=== PATIENT | female | born 1955 | race Caucasian/White ===

== ENCOUNTER 2024-07-13 12:29 | Observation (INO) ==
--- NOTE | 2024-07-13 13:05 | Emergency Department Note ---
HPI - SOB/Dyspnea General Chief Complaint: SOB -Shortness of Breath Stated Complaint: SOB .. legs swollen Time Seen by Provider: 07/13/24 12:33 Source: patient and family Mode of arrival: walk-in Limitations: no limitations History of Present Illness HPI Narrative: 68 Y/O Female with HX of CHF comes to the ED with c/o SOB, with increase in BLE swelling. She was recently discharged from hospital on 07-06-2024, she states, I never actually felt better, but thought I could go home, family member with patient states the patient is unable to care for herself. MD elicited complaint: Reports shortness of breath Context: Reports recent illness Timing: Reports constant Severity: mild Exacerbating factors: Reports exertion Relieving factors: Reports nothing Known history of: Reports congestive heart failure and diabetes Associated symptoms: Reports chest congestion Related Data Home Medications Medication Instructions Recorded Confirmed amlodipine 5 mg tablet 5 mg PO DAILY 07/04/24 07/04/24 atenolol 25 mg tablet 12.5 mg PO BID 07/04/24 07/04/24 bumetanide 0.5 mg tablet 0.5 mg PO DAILY PRN edema 07/04/24 07/04/24 glimepiride 4 mg tablet 8 mg PO DAILY 07/04/24 07/04/24 glucagon 1 mg/0.2 mL subcutaneous 1 mg subcut DIRECTED PRN 07/04/24 07/04/24 auto-injector (Gvoke HypoPen hypoglycemia 2-Pack) insulin glargine U-300 conc 300 40 unit subcut BEDTIME PRN 07/04/24 07/06/24 unit/mL (1.5 mL) subcutaneous pen elevated blood sugar (Toujeo SoloStar U-300 Insulin) insulin lispro 100 unit/mL 5 unit subcut QAM 07/04/24 07/04/24 subcutaneous pen lovastatin 10 mg tablet 10 mg PO DAILY 07/04/24 07/04/24 pioglitazone 45 mg tablet 45 mg PO DAILY 07/04/24 07/04/24 Previous Rx's Medication Instructions Recorded ciprofloxacin HCl 250 mg tablet 250 mg PO Q12H uti #10 tabs 07/06/24 sodium zirconium cyclosilicate 5 5 g PO DAILY high potassium #30 ea 07/06/24 gram oral powder packet (Lokelvt) Allergies Allergy/AdvReac Type Severity Reaction Status Date / Time citrus fruit oil Allergy Unknown Uncoded 07/13/24 13:06 Review of Systems Constitutional Denies: fever or chills Cardiovascular Reports: edema and shortness of breath with exertion; Denies: chest pain Respiratory Reports: shortness of breath; Denies: cough, wheezing or stridor Gastrointestinal Denies: abdominal pain, nausea or vomiting Neurological Denies: headache, numbness in extremities or weakness in extremities Psychiatric Denies: anxiety PFSH PFS Medical History (Updated 07/06/24 @ 14:57 by Antionette Mcleod DO) Hypoalbuminemia Diabetes mellitus Hyperlipidemia Hypertension Surgical History (Updated 07/04/24 @ 11:14 by Jennifer Clark RN) History of renal stent Social History Smoking status: never smoker Problems where you live: no known problems Highest level of school completed/degree received: College Exam Constitutional: Vital Signs - 24 hr 07/13/24 12:32 Temperature 98.1 F Pulse Rate 83 Respiratory Rate 22 Blood Pressure 153/52 Pulse Oximetry 96 Oxygen Delivery Me thod Room Air HENMT: normocephalic Eyes: PERRL and EOMs intact bilaterally Respiratory: normal respiratory effort, no wheezes, no retractions and no use of accessory muscles Rhonchi noted, viola bases Cardiovascular: normal heart rate noted and regular rhythm noted Gastrointestinal: abdomen soft to palpation and distended blister, left lower abdomen wall. Non tender Extremities: no tenderness and full ROM Neurology: workforce management consultant II-XII intact and GCS normal Skin: skin color normal Course Course Hospital Course: Patient seen today for increased weakness, with SOB. Recently discharged from in patient on 07-06-2024. Labs reviewed. Chest x-ray with new onset PNA, left lobe. Rocephin 1 gm ordered IV, patient's QTC prolonged, did not order Azithromycin. I called for admission, Dr. Mcleod agreed to accept and assume care for this patient. Reevaluation(s) Reevaluation #1: Patient is updated on all labs and imaging results, with recommendations for admission. We discussed a treatment plan. I answered all the patient's and her relative's questions. The patient currently denies any pain, remains SOB, not requiting supplemental 02 at this time, RA patient's 02 sats 93-94%, RR even and unlabored. Time: 14:00 Vital Signs Vital signs: Vital Signs Temperature 98.1 F 07/13/24 12:32 Pulse Rate 83 07/13/24 12:32 Respiratory Rate 22 07/13/24 12:32 Blood Pressure 153/52 07/13/24 12:32 Pulse Oximetry 96 07/13/24 12:32 Oxygen Delivery Method Room Air 07/13/24 12:32 Temperature 98.1 F 07/13/24 12:32 Pulse Rate 83 07/13/24 12:32 Respiratory Rate 22 07/13/24 12:32 Blood Pressure 153/52 07/13/24 12:32 Pulse Oximetry 96 07/13/24 12:32 Oxygen Delivery Method Room Air 07/13/24 12:32 MDM - SOB/Dyspnea Differential Diagnosis Differential diagnosis: Likely congestive heart failure and community acquired pneumonia Medical Records Attestation: I reviewed the patient's medical records. Lab Data Attestation: I reviewed the patient's lab results. Labs: Lab Results 07/13/24 07/13/24 Range/Units 12:40 13:00 WBC 10.9 H (4.3-9.3) K/uL RBC 2.8 L (4.00-5.50) M/uL Hgb 7.8 L (12.5-15.8) gm/dL Hct 23.8 L* (35.9-46.7) % MCV 85.7 (81.0-93.7) fl MCH 28.0 (27.6-32.2) pg MCHC 32.7 L (33.1-35.3) g/dl RDW 17.6 H (11.4-14.2) % Plt Count 257 (152-353) K/uL MPV 7.7 (6.9-10.8) fl Gran % 61.2 (47.8-71.3) % Lymph % (Auto) 25.3 (20.0-43.0) % [place] % (Auto) 10.1 H (3.6-9.8) % Eos % (Auto) 2.8 (0.4-2.8) % Baso % (Auto) 0.6 (0.1-0.85) Lymph # (Auto) 2.7 (1.1-3.1) [place] # (Auto) 1.1 (1.1-3.1) Eos # (Auto) 0.3 H (0.0-0.2) Baso # (Auto) 0.1 (0.0-0.1) Absolute Gran (auto) 6.6 H (2.3-6.0) Sodium 138 (136-145) mmol/L Potassium 4.0 (3.6-5.2) mmol/L Chloride 105.0 (98-107) mmol/L Carbon Dioxide 24 (21-32) mmol/L Anion Gap 9.0 (4-14) mEq/L BUN 71 H (7-18) mg/dL Creatinine 2.2 H (0.6-1.3) mg/dL Estimated GFR 23.8 (>59.9) Glucose 135 H (70-110) mg/dL Calcium 9.2 (8.5-10.1) mg/dL Total Bilirubin 0.29 (0.0-1.0) mg/dL AST 18 (15-37) U/L ALT 29 L (30-65) U/L Alkaline Phosphatase 108 (50-136) U/L B-Natriuretic Peptide 282.0 H (0-100) pg/mL Total Protein 8.1 (6.4-8.2) g/dL Albumin 2.8 L (3.4-5.0) g/dL Urine Color Yellow (STRAW/YELL.) Urine Appearance Hazy (CLEAR) Ur Specific [place] 1.015 (1.001-1.035) Urine Protein 3+ (NEGATIVE) Urine Glucose (UA) Normal (NORMAL) Urine Ketones Negative (NEGATIVE) Urine Occult Blood 3+ (NEG - TRACE) Urine Nitrite Negative (NEGATIVE) Urine Bilirubin Negative (NEGATIVE) Urine Urobilinogen Normal (NORMAL) Ur Leukocyte Esterase Positive (NEGATIVE) Urine RBC > 100 (0 - 5) Urine WBC 5 - 10 ( 0 - 5) Ur Epithelial Cells Few (Few/HPF) Amorphous Sediment Negative (Negative) Urine Bacteria Negative (Negative) Urine Mucus Negative (Negative) Urine Trichomonas Negative (Negative) Urine Yeast Negative (Negative) Fluid pH 6.0 (5 - 9) Imaging Data Imaging ordered: Chest x-ray My impression: XR CHEST 1V HISTORY: SOB; COMPARISON: July 04, 2024 FINDINGS: The trachea is midline. The cardiac silhouette is mildly enlarged. Left lung base infiltrate is seen with small left effusion.. The rest of lungs are clear without focal infiltrate or effusion. The bony thorax is unremarkable. IMPRESSION: Left lung base pneumonia with small effusion. THIS IS AN ELECTRONICALLY VERIFIED FINAL REPORT 07/13/2024 1:17 PM - Electronically signed by Raheem Vance MD Discharge Plan Discharge Patient Disposition: Admitted As Inpatient Condition: Stable Clinical Impression: Pneumonia Time of Disposition: 14:02
[2024-07-13 13:09] LABS: Basophils #(Absolute) Auto 0.1 (0.0-0.1); Basophils%(Percent) Auto 0.6 (0.1-0.85); Eosinophils#(Absolute)Auto 0.3 (0.0-0.2); Monocytes #(Absolute)- Auto 1.1 (1.1-3.1); White Blood Count 10.9 K/uL (4.3-9.3)
[2024-07-13 13:13] LABS: Eosinophils%(Percent) Auto 2.8 % (0.4-2.8); Granulocytes % - Auto 61.2 % (47.8-71.3); Granulocytes#(Absolute)- Auto 6.6 (2.3-6.0); Mean Corpuscular Volume 85.7 fl (81.0-93.7); Monocytes %(Percent)- Auto 10.1 % (3.6-9.8); Platelet Count 257 K/uL (152-353)
[2024-07-13 13:14] LABS: Hematocrit 23.8 % (35.9-46.7)
[2024-07-13] MEDS ORDERED: 0.9 % SODIUM CHLORIDE 50 ML IV ONE (14:07)
[2024-07-13] MEDS ORDERED: CEFTRIAXONE SODIUM 1 GM VIAL ONE (14:07)
[2024-07-13 14:09] LABS: Urine Appearance HAZY (CLEAR); Urine Color YELLOW (STRAW/YELL.)
[2024-07-13] MEDS: CEFTRIAXONE SODIUM 1 GM in 0.9 % SODIUM CHLORIDE MB+ 50 ML IV ONE (14:09)
[2024-07-13 14:10] LABS: Specific Gravity Urine 1.015 (1.001-1.035); Urine Blood 3+ (NEG - TRACE); Urine Urobilinogen Normal (NORMAL)
[2024-07-13] MEDS ORDERED: 0.9 % SODIUM CHLORIDE MB+ 50 ML IV ONE (14:10)
[2024-07-13 14:11] LABS: Urine Amorphous Sediment Negative (Negative); Urine Yeast Negative (Negative)
[2024-07-13] MEDS ORDERED: ACETAMINOPHEN 325 MG TABLET PO PRN (17:59)
[2024-07-13] MEDS: BUMETANIDE 1 MG TABLET PO PRN (20:36)
[2024-07-13] MEDS: atenoloL 50 MG TABLET PO SCH (20:37)
[2024-07-13] MEDS: SIMVASTATIN 10 MG TABLET PO SCH (20:37)
[2024-07-14 06:05] LABS: Eosinophils#(Absolute)Auto 0.2 (0.0-0.2); Monocytes #(Absolute)- Auto 0.8 (1.1-3.1); White Blood Count 8.2 K/uL (4.3-9.3)
[2024-07-14 06:08] LABS: Basophils%(Percent) Auto 0.5 (0.1-0.85); Eosinophils%(Percent) Auto 2.2 % (0.4-2.8); Granulocytes % - Auto 65.5 % (47.8-71.3); Granulocytes#(Absolute)- Auto 5.4 (2.3-6.0); Mean Corpuscular Volume 85.2 fl (81.0-93.7); Monocytes %(Percent)- Auto 10.3 % (3.6-9.8); Platelet Count 211 K/uL (152-353)
[2024-07-14 06:15] LABS: Hematocrit 18.3 % (35.9-46.7)
[2024-07-14 06:29] LABS: Potassium 3.8 mmol/L (3.6-5.2)
[2024-07-14] MEDS: INSULIN NPH HUMAN ISOPHANE 100 UNIT/ML VIAL SUBQ SCH (07:25)
[2024-07-14] MEDS ORDERED: LOVASTATIN 10 MG PO SCH (09:00)
[2024-07-14] MEDS: GLIMEPIRIDE 2 MG TABLET PO SCH (09:52)
[2024-07-14] MEDS: AMLODIPINE BESYLATE 5 MG TABLET PO SCH (09:52)
[2024-07-14] MEDS: INSULIN ASPART 100 UNIT/ML INSULN.PEN SUBQ SCH (09:53)
[2024-07-14] MEDS: IPRATROPIUM/ALBUTEROL SULFATE 3 ML AMPUL.NEB INH SCH (13:13)
[2024-07-14] MEDS: AZITHROMYCIN 500 MG 500 MG in 0.9 % SODIUM CHLORIDE 250 ML IV SCH (13:53)
[2024-07-14] MEDS: METHYLPREDNISOLONE SOD SUCC/PF 40 MG/ML VIAL INJ SCH (13:53)
[2024-07-14] MEDS ORDERED: CEFTRIAXONE SODIUM 1 GM in 0.9 % SODIUM CHLORIDE MB+ 50 ML IV ONE (15:00)
[2024-07-14] MEDS ORDERED: INSULIN GLARGINE U SUBQ PRN (16:00)
[2024-07-14] MEDS: CEFTRIAXONE SODIUM 1 GM in 0.9 % SODIUM CHLORIDE MB+ 50 ML IV SCH (16:02)
[2024-07-14] MEDS: ALBUMIN HUMAN 25% 100 ML IV SCH (16:03)
[2024-07-14] MEDS: 0.9 % SODIUM CHLORIDE 100ML 100 ML IV ONE (16:04)
--- NOTE | 2024-07-14 17:13 | History & Physical Report ---
H&P: HPI History of Present Illness Chief complaint: Pneumonia Narrative: 68 Y/O Female with HX of CHF came to the ED with c/o SOB, with increase in BLE swelling. She was recently discharged from hospital on 07-06-2024, she stated, I never actually felt better, but thought I could go home, family member with liudmila uriostegui states the patient is unable to care for herself. Admitted to med/surg for observation and treatment of right leg pain and swelling and new onset pneumonia. Patient states she started coughing after hospital discharge and shortness of breath worsening over the last 3 days and denies any fever and she is always weak and tired. Poor appetite and denies vomiting and diarrhea and no known ill contacts Review of Systems Status of ROS 10 or more systems reviewed and unremark able except as noted in history and below Constitutional Denies: fever or chills Eyes Denies: change in vision, blurry vision or blind spots Ears, nose, mouth, and throat Denies: throat pain, neck pain or throat swelling Cardiovascular Reports: edema (3+ pitting BLE), swelling of feet/ankles and shortness of breath with exertion; Denies: chest pain Respiratory Reports: shortness of breath; Denies: cough, wheezing or stridor Gastrointestinal Denies: abdominal pain, nausea or vomiting Genitourinary Denies: painful urination, urinary frequency or urinary urgency Musculoskeletal Reports: extremity swelling (BLE); Denies: back pain, neck pain or extremity pain Integumentary/Breast Denies: rash, itching or redness Neurological Denies: headache, numbness in extremities or weakness in extremities Psychiatric Denies: anxiety Endocrine Denies: excessive urination or excessive thirst Hematologic/Lymphatic Denies: easy bruising, easy bleeding or enlarged lymph nodes Allergic/Immunologic Denies: wheezing PFSH PFSH Medical History (Updated 07/15/24 @ 08:30 by Antionette Mcleod DO) Venous stasis dermatitis of both lower extremities Chronic acquired lymphedema Hyperkalemia Hypoalbuminemia Diabetes mellitus Hyperlipidemia Hypertension Surgical History (Updated 07/04/24 @ 11:14 by Jennifer Clark RN) History of renal stent Social History Smoking status: never smoker Problems where you live: no known problems Highest level of school completed/degree received: College Meds Home Medications and Allergies Home Medications Medication Instructions Recorded Confirmed Type amlodipine 5 mg tablet 5 mg PO DAILY 07/04/24 07/14/24 History atenolol 25 mg tablet 12.5 mg PO BID 07/04/24 07/14/24 History bumetanide 0.5 mg tablet 0.5 mg PO DAILY PRN edema 07/04/24 07/14/24 History glimepiride 4 mg tablet 8 mg PO DAILY 07/04/24 07/14/24 History glucagon 1 mg/0.2 mL subcutaneous 1 mg subcut DIRECTED PRN 07/04/24 07/14/24 History auto-injector (Gvoke HypoPen hypoglycemia 2-Pack) insulin glargine U-300 conc 300 40 unit subcut BEDTIME PRN 07/04/24 07/14/24 History unit/mL (1.5 mL) subcutaneous pen elevated blood sugar (Toujeo SoloStar U-300 Insulin) insulin lispro 100 unit/mL 5 unit subcut QAM 07/04/24 07/14/24 History subcutaneous pen lovastatin 10 mg tablet 10 mg PO DAILY 07/04/24 07/14/24 History pioglitazone 45 mg tablet 45 mg PO DAILY 07/04/24 07/14/24 History sodium zirconium cyclosilicate 5 5 g PO DAILY high potassium #30 ea 07/06/24 07/14/24 Rx gram oral powder packet (Lokelma) Allergies Allergy/AdvReac Type Severity Reaction Status Date / Time citrus fruit oil Allergy Unknown Uncoded 07/13/24 13:06 Exam Exam: Patient in low higgins's position upon entering room for exam. in recliner at bedside. Patient complained of shortness of breath. Constitutional: abnormal general appearance (chronically ill), no apparent distress, abnormal body habitus (obese), limitations noted (physical limitations) (morbid obesity) and alert Vital Signs - 24 hr 07/13/24 15:06 07/13/24 16:16 07/13/24 16:16 Temperature 98.3 F Pulse Rate 74 Pulse Rate [Left R adial] 76 72 Respiratory Rate 20 18 18 Blood Pressure 129/44 Blood Pressure [Le ft Arm] 147/55 Pulse Oximetry 96 94 L 98 Oxygen Delivery Me thod Room Air Room Air 07/13/24 19:54 07/13/24 20:36 07/13/24 20:37 Temperature 98.2 F Pulse Rate 75 Pulse Rate [Left R adial] 75 Respiratory Rate 21 Blood Pressure 134/55 134/55 Blood Pressure [Le ft Arm] 134/55 Pulse Oximetry 93 L Oxygen Delivery Me thod Room Air 07/13/24 23:18 07/13/24 23:27 07/14/24 03:37 Temperature 98.4 F 98.3 F Pulse Rate 74 Pulse Rate [Left R adial] 74 74 Respiratory Rate 24 19 Blood Pressure 130/53 Blood Pressure [Le ft Arm] 130/53 123/51 Pulse Oximetry 95 94 L Oxygen Delivery Me thod Room Air Room Air 07/14/24 08:00 07/14/24 09:52 07/14/24 12:00 Temperature 98.2 F 98.3 F Pulse Rate 75 Pulse Rate [Left R adial] 75 90 Respiratory Rate 19 19 Blood Pressure 147/92 Blood Pressure [Le ft Arm] 146/92 157/53 Pulse Oximetry 92 L 91 L Oxygen Delivery Me thod Room Air Room Air 07/14/24 13:56 Temperature Pulse Rate Pulse Rate [Left R adial] Respiratory Rate Blood Pressure Blood Pressure [Le ft Arm] Pulse Oximetry 95 Oxygen Delivery Me thod HENMT: normocephalic, head/scalp atraumatic, hearing grossly normal bilate rally, external ears normal and external nose normal Eyes: PERRL, EOMs intact bilaterally, conjunctivae normal, alignment normal, periorbital findings normal and visual acuity normal Neck/C-Spine: trachea midline Lymph: no lymphadenopathy noted and lymphedema noted (lower extremity) (GAAML) Chest: inspection of chest normal and palpation of chest normal Respiratory: breath sounds unequal (left > right), normal respiratory effort, auscultation abnormal (diminished breath sound), wheezing noted, no retractions and no use of accessory muscles Rhonchi noted, gamal bases Cardiovascular: normal heart rate noted, regular rhythm noted and no murmur Gastrointestinal: abdomen soft to palpation and distended blister, left lower abdomen wall. Non tender Genitourinary: no CVA tenderness and bladder normal to palpation Back/Pelvis: spine normal to inspection Extremities: normal to inspection, no tenderness and no deformity Neurology: sanipractic physician II-XII intact, no movement abnormality noted, no focal motor deficit noted, gait abnormality noted (unable to access), speech normal and GCS normal Psychiatry: Mental Status Exam documented within this Exam's Psych section mental status grossly normal, oriented x3, thought process normal, cooperative, affect normal, psychomotor activity normal and memory normal Skin: skin color normal and skin turgor abnormal Reports (edematous) (BLE 3+ Pitting ) Assessment and Plan Assessment and Plan (1) Pneumonia: Assessment and Plan: Albuterol Sulfate 3 ml INH RQ4 Methylprednisolone Sodium Succinate 40 mg INJ Q12H Vancomycin Hcl 1,000 mg in Sodium Chloride 250 mls @ 250 mls/hr IV Q24H added secondary to recent hospitalization on 07/06/24 Piperacillin Sod/Tazobactam 3.375 gm in Sodium Chloride 100 mls @ 200 mls/hr IV Q6H Levofloxacin/Dextrose 750 mg in 150 mls @ 75 mls/hr IV Q48H stop zithromax and rocephin since concerns over excess antibiotics and probable hospital aquired pneumonia Qualifiers: Laterality: left Lung location: lower lobe of lung Pneumonia type: due to unspecified organism Qualified Code(s): J18.9 - Pneumonia, unspecified organism Code(s): J18.9 - Pneumonia, unspecified organism (2) Diabetes mellitus: Assessment and Plan: Glimepiride 8 mg PO Daily Insulin Aspart 5 units SUBQ Daily Insulin Glargine U-300 Conc 40 units SUBQ Bedtime PRN Pioglitazone 45 mg PO Daily Qualifiers: Diabetes mellitus complication status: with hyperglycemia Diabetes mellitus protective signal operations supervisor insulin use: with senior care use Diabetes mellitus type: type 2 Qualified Code(s): E11.65 - Type 2 diabetes mellitus with hyperglycemia; Z79.4 - stress analyst (current) use of insulin Code(s): E11.9 - Type 2 diabetes mellitus without complications (3) Hypertension: Assessment and Plan: Amlodipine Besylate 5 mg PO Daily Atenolol 12.5 mg PO BID Qualifiers: Hypertension type: unspecified Qualified Code(s): I10 - Essential (primary) hypertension Code(s): I10 - Essential (primary) hypertension (4) Acute renal failure: Assessment and Plan: Sodium Zirconium Cyclosilicate 5 gm PO Daily Qualifiers: Acute renal failure type: unspecified Qualified Code(s): N17.9 - Acute kidney failure, unspecified Code(s): N17.9 - Acute kidney failure, unspecified (5) Hyperlipidemia: Assessment and Plan: Simvastatin 5 mg PO Bedtime Qualifiers: Hyperlipidemia type: unspecified Qualified Code(s): E78.5 - Hyperlipidemia, unspecified Code(s): E78.5 - Hyperlipidemia, unspecified (6) Hypoalbuminemia: Assessment and Plan: Albumin 100 mls @ 60 mls/hr IV ONCE Code(s): E88.09 - Other disorders of plasma-protein metabolism, not elsewhere classified (7) Anemia: Assessment and Plan: Transfuse (1) unit RBC's Qualifiers: Anemia type: iron deficiency Iron deficiency anemia type: unspecified iron deficiency Qualified Code(s): D50.9 - Iron deficiency anemia, unspecified Code(s): D64.9 - Anemia, unspecified (8) Skin tear of right forearm without complication: Assessment and Plan: Wound Care Qualifiers: Encounter type: initial encounter Qualified Code(s): S51.811A - Laceration without foreign body of right forearm, initial encounter Code(s): S51.811A - Laceration without foreign body of right forearm, initial encounter (9) Chronic acquired lymphedema: Code(s): I89.0 - Lymphedema, not elsewhere classified (10) Venous stasis dermatitis of both lower extremities: Assessment and Plan: apply compression stockings Code(s): I87.2 - Venous insufficiency (chronic) (peripheral) Plan Requested Edema Management from Physical Therapy Wound care for skin tear on right forearm. Provider will continue to monitor labs and symptoms. Results Labs Labs: CBC WBC 8.2 K/uL (4.3-9.3) 07/14/24 05:40 RBC 2.2 M/uL (4.00-5.50) L 07/14/24 05:40 Hgb 6.1 gm/dL (12.5-15.8) L* 07/14/24 05:40 Hct 18.3 % (35.9-46.7) L* 07/14/24 05:40 MCV 85.2 fl (81.0-93.7) 07/14/24 05:40 MCH 28.4 pg (27.6-32.2) 07/14/24 05:40 MCHC 33.3 g/dl (33.1-35.3) 07/14/24 05:40 RDW 17.2 % (11.4-14.2) H 07/14/24 05:40 Plt Count 211 K/uL (152-353) 07/14/24 05:40 MPV 7.2 fl (6.9-10.8) 07/14/24 05:40 Gran % 65.5 % (47.8-71.3) 07/14/24 05:40 Lymph % (Auto) 21.5 % (20.0-43.0) 07/14/24 05:40 [place] % (Auto) 10.3 % (3.6-9.8) H 07/14/24 05:40 Eos % (Auto) 2.2 % (0.4-2.8) 07/14/24 05:40 Baso % (Auto) 0.5 (0.1-0.85) 07/14/24 05:40 Lymph # (Auto) 1.8 (1.1-3.1) 07/14/24 05:40 [place] # (Auto) 0.8 (1.1-3.1) L 07/14/24 05:40 Eos # (Auto) 0.2 (0.0-0.2) 07/14/24 05:40 Baso # (Auto) 0.0 (0.0-0.1) 07/14/24 05:40 Absolute Gran (auto) 5.4 (2.3-6.0) 07/14/24 05:40 BMP Sodium 139 mmol/L (136-145) 07/14/24 05:40 Potassium 3.8 mmol/L (3.6-5.2) 07/14/24 05:40 Chloride 107.0 mmol/L (98-107) 07/14/24 05:40 Carbon Dioxide 23 mmol/L (21-32) 07/14/24 05:40 Anion Gap 9.0 mEq/L (4-14) 07/14/24 05:40 BUN 66 mg/dL (7-18) H 07/14/24 05:40 Creatinine 2.1 mg/dL (0.6-1.3) H 07/14/24 05:40 Estimated GFR 25.2 (>59.9) 07/14/24 05:40 Glucose 127 mg/dL (70-110) H 07/14/24 05:40 Calcium 8.6 mg/dL (8.5-10.1) 07/14/24 05:40 Phosphorus 4.0 mg/dL (2.5-4.9) 07/14/24 05:40 Magnesium 1.9 mg/dL (1.8-2.4) 07/14/24 05:40 Total Bilirubin 0.26 mg/dL (0.0-1.0) 07/14/24 05:40 AST 16 U/L (15-37) 07/14/24 05:40 ALT 21 U/L (30-65) L 07/14/24 05:40 Alkaline Phosphatase 92 U/L (50-136) 07/14/24 05:40 Total Protein 6.6 g/dL (6.4-8.2) 07/14/24 05:40 Albumin 2.3 g/dL (3.4-5.0) L 07/14/24 05:40 Liver Function Total Bilirubin 0.26 mg/dL (0.0-1.0) 07/14/24 05:40 AST 16 U/L (15-37) 07/14/24 05:40 ALT 21 U/L (30-65) L 07/14/24 05:40 Alkaline Phosphatase 92 U/L (50-136) 07/14/24 05:40 Total Protein 6.6 g/dL (6.4-8.2) 07/14/24 05:40 Albumin 2.3 g/dL (3.4-5.0) L 07/14/24 05:40 Urine Urine Color Yellow (STRAW/YELL.) 07/13/24 12:40 Urine Appearance Hazy (CLEAR) 07/13/24 12:40 Ur Specific [place] 1.015 (1.001-1.035) 07/13/24 12:40 Urine Protein 3+ (NEGATIVE) 07/13/24 12:40 Urine Glucose (UA) Normal (NORMAL) 07/13/24 12:40 Urine Ketones Negative (NEGATIVE) 07/13/24 12:40 Urine Occult Blood 3+ (NEG - TRACE) 07/13/24 12:40 Urine Nitrite Negative (NEGATIVE) 07/13/24 12:40 Urine Bilirubin Negative (NEGATIVE) 07/13/24 12:40 Urine Urobilinogen Normal (NORMAL) 07/13/24 12:40 Ur Leukocyte Esterase Positive (NEGATIVE) 07/13/24 12:40 Imaging Imaging ordered: Chest x-ray Radiologist's impression: XR CHEST 1V Date of Service: 07/13/24 HISTORY: SOB; COMPARISON: July 04, 2024 FINDINGS: The trachea is midline. The cardiac silhouette is mildly enlarged. Left lung base infiltrate is seen with small left effusion.. The rest of lungs are clear without focal infiltrate or effusion. The bony thorax is unremarkable. IMPRESSION: Left lung base pneumonia with small effusion.
[2024-07-14] MEDS: PIOGLITAZONE HCL 30 MG TABLET PO SCH (18:07)
[2024-07-14] MEDS: VANCOMYCIN HCL 1,000 MG in 0.9 % SODIUM CHLORIDE 250 ML IV SCH (18:07)
[2024-07-14] MEDS: BUMETANIDE 1 MG/4 ML VIAL IVP ONE (19:10)
[2024-07-14] MEDS: NEOMYCIN/BACITRACIN/POLYMYXINB 1 EACH OINT.PACK TOPICAL ONE (20:10)
[2024-07-14] MEDS: LEVOFLOXACIN/D5W 750 MG/150 ML 750 MG/150 ML PIGGYBACK IV SCH (21:14)
[2024-07-14] MEDS: PIPERACILLIN/TAZOBACTAM 3.375 3.375 GM in 0.9 % SODIUM CHLORIDE MB+ 100 ML IV SCH (21:15)
[2024-07-14] MEDS: INSULIN GLARGINE-YFGN 100 UNIT/ML INSULN.PEN SUBQ PRN (22:36)
[2024-07-15 05:42] LABS: Basophils%(Percent) Auto 0.1 (0.1-0.85); Granulocytes % - Auto 88.6 % (47.8-71.3); Granulocytes#(Absolute)- Auto 6.8 (2.3-6.0); Mean Corpuscular Volume 85.9 fl (81.0-93.7); Monocytes #(Absolute)- Auto 0.1 (1.1-3.1); Monocytes %(Percent)- Auto 1.4 % (3.6-9.8); Platelet Count 219 K/uL (152-353); White Blood Count 7.7 K/uL (4.3-9.3)
[2024-07-15 05:47] LABS: Hematocrit 23.5 % (35.9-46.7)
[2024-07-15 05:56] LABS: Potassium 4.2 mmol/L (3.6-5.2)
[2024-07-15] MEDS: SODIUM ZIRCONIUM CYCLOSILICATE 5 GM PO SCH (09:00)
--- NOTE | 2024-07-15 11:36 | Event Note ---
Event Note Event Note: Late Entry: 07/14/24 @ 0615 received a call from SHREYAS Machado re: critical Hbg 6.1 and Hct 18.3. H/H was 7.8 and 23.8 one day ago. Hemoccult ordered and call result.
[2024-07-16 04:51] LABS: Granulocytes % - Auto 91.8 % (47.8-71.3); Granulocytes#(Absolute)- Auto 12.5 (2.3-6.0); Hematocrit 24.3 % (35.9-46.7); Mean Corpuscular Volume 86.2 fl (81.0-93.7); Monocytes #(Absolute)- Auto 0.5 (1.1-3.1); Monocytes %(Percent)- Auto 3.6 % (3.6-9.8); Platelet Count 264 K/uL (152-353); White Blood Count 13.6 K/uL (4.3-9.3)
[2024-07-16 05:24] LABS: Potassium 4.3 mmol/L (3.6-5.2)
[2024-07-16] MEDS ORDERED: HYDROCODONE/CHLORPHEN P-STIREX 5 ML SUS.ER.12H PO PRN (11:50)
[2024-07-16] MEDS: METHYLPREDNISOLONE SOD SUCC/PF 40 MG/ML VIAL INJ SCH (12:20)
[2024-07-16] MEDS: 0.9 % SODIUM CHLORIDE 100ML 100 ML IV ONE (15:18)
[2024-07-16] MEDS: PIPERACILLIN/TAZOBACTAM 3.375 3.375 GM in 0.9 % SODIUM CHLORIDE MB+ 100 ML IV SCH (16:40)
[2024-07-17 04:22] LABS: Basophils #(Absolute) Auto 0.1 (0.0-0.1); Basophils%(Percent) Auto 0.4 (0.1-0.85); Granulocytes % - Auto 92.3 % (47.8-71.3); Granulocytes#(Absolute)- Auto 12.8 (2.3-6.0); Mean Corpuscular Volume 84.4 fl (81.0-93.7); Monocytes #(Absolute)- Auto 0.5 (1.1-3.1); Monocytes %(Percent)- Auto 3.8 % (3.6-9.8); Platelet Count 242 K/uL (152-353); White Blood Count 13.9 K/uL (4.3-9.3)
[2024-07-17 04:41] LABS: Potassium 4.3 mmol/L (3.6-5.2)
[2024-07-17 07:42] VITALS: BP 149/67; PULSE 86; RESP 19; TEMP 97.9
--- NOTE | 2024-07-17 10:52 | Discharge Summary ---
DS: Providers Provider Date of admission: 07/13/24 14:34 Primary care physician: Kenya Vargas Admitting clinician: Antionette Mcleod Attending physician on admission: Antionette Mcleod Consults: 07/14/24 10:20 Consult to Physical Therapy Routine Comment: Consulting Provider: Reason for consultation: pneumonia left side Physician Instructions: evaluate and treat Chest physio 07/14/24 10:34 Consult to Physical Therapy Routine Comment: Consulting Provider: Reason for consultation: edema Physician Instructions: edema manegement Attending physician on discharge: Romeo Leroy Discharging clinician: Romoe Leroy Anticipated date of discharge: 07/17/24 DS: Diagnosis Discharge Diagnosis (1) Pneumonia: Assessment and plan: LLL. Qualifiers: Pneumonia type: due to unspecified organism Laterality: left Lung location: lower lobe of lung Qualified Code(s): J18.9 - Pneumonia, unspecified organism (2) Diabetes mellitus: Assessment and plan: with CKD4. 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 Qualifiers: Acute renal failure type: unspecified Qualified Code(s): N17.9 - Acute kidney failure, unspecified (5) Hyperlipidemia: Qualifiers: Hyperlipidemia type: unspecified Qualified Code(s): E78.5 - Hyperlipidemia, unspecified (6) Hypoalbuminemia: (7) Anemia: Assessment and plan: due to GI losses and CKD. Qualifiers: Anemia type: iron deficiency Iron deficiency anemia type: unspecified iron deficiency Qualified Code(s): D50.9 - Iron deficiency anemia, unspecified (8) Skin tear of right forearm without complication: Qualifiers: Encounter type: initial encounter Qualified Code(s): S51.811A - Laceration without foreign body of right forearm, initial encounter (9) Chronic acquired lymphedema: (10) Venous stasis dermatitis of both lower extremities: Plan Discharge home on Doxy 100, PO, BID, x10 more doses. DS: Summary Hospital Course Hospital Course: Admitted 2 weeks ago for electrolyte abnormalities secondary to RANDI. Readmitted with LLL PNA and generalized weakness. She is on fluid restriction due to heart failure and required blood transfusion due to Hgb of 6.1 with good response. Hemoccult positive, but patient wanting GI f/u as outpt, not transfer. Hgb stable x2 before discharge. Vitals and labs stable (with continued elevation of SCr due to fluid restriction and diuretics). Pt's respiratory status improved throughout admission and is currently not requiring oxygen. Discharged home in improved, stable condition with plans for GI, nephro, cardiology, and PCP f/u. Status at Discharge Functional status at discharge: uses cane/walker Overall status at discharge: patient is back to baseline Time Spent with Patient Time attestation: Total time spent providing and/or coordinating discharge services: Exam Exam: Obese female in NAD, sitting in recliner. NCAT, EOMI, hearing intact to conversation. Mood/affect appropriate. No edema of BLE. RRR. Lungs clear, but diminished. Bowel sounds present with NT/ND abdomen. Constitutional: Vital Signs - 24 hr 07/16/24 11:23 07/16/24 11:44 07/16/24 11:52 Temperature 97.8 F 97.9 F Pulse Rate 92 H 92 H Pulse Rate [Left R adial] Respiratory Rate 18 18 Blood Pressure 146/56 135/61 Blood Pressure [Le ft Arm] Pulse Oximetry 95 95 98 Oxygen Delivery Me thod 07/16/24 11:52 07/16/24 12:45 07/16/24 13:45 Temperature 97.8 F 98 F 97.5 F L Pulse Rate 100 H 90 Pulse Rate [Left R adial] 94 H Respiratory Rate 18 19 19 Blood Pressure 138/67 168/83 Blood Pressure [Le ft Arm] 137/62 Pulse Oximetry 96 95 92 L Oxygen Delivery Me thod Room Air 07/16/24 14:39 07/16/24 15:40 07/16/24 15:51 Temperature 97.6 F 97.7 F 97.7 F Pulse Rate 100 H 96 H Pulse Rate [Left R adial] 96 H Respiratory Rate 18 19 19 Blood Pressure 141/53 158/61 Blood Pressure [Le ft Arm] 158/61 Pulse Oximetry 96 95 95 Oxygen Delivery Me thod Room Air 07/16/24 15:56 07/16/24 19:24 07/16/24 19:30 Temperature Pulse Rate Pulse Rate [Left R adial] 90 Respiratory Rate 21 Blood Pressure Blood Pressure [Le ft Arm] 135/71 Pulse Oximetry 95 93 L 92 L Oxygen Delivery Me thod Room Air 07/16/24 20:47 07/16/24 23:24 07/16/24 23:41 Temperature 97.5 F L Pulse Rate 90 Pulse Rate [Left R adial] 97 H Respiratory Rate 19 Blood Pressure 135/71 Blood Pressure [Le ft Arm] 130/56 Pulse Oximetry 96 97 Oxygen Delivery Me thod Room Air 07/17/24 00:02 07/17/24 03:43 07/17/24 04:32 Temperature 97.8 F Pulse Rate 97 H Pulse Rate [Left R adial] 84 Respiratory Rate 22 Blood Pressure 130/56 Blood Pressure [Le ft Arm] 130/74 Pulse [facility]ximetry 95 [facility] 07/17/24 07:41 07/17/24 08:07 07/17/24 08:07 Temperature 97.9 F Pulse Rate 86 Pulse Rate [Left R adial] 86 Respiratory Rate 19 Blood Pressure 149/67 149/67 Blood Pressure [Le ft Arm] 149/67 Pulse Oximetry 96 Oxygen Delivery Me od Room Air 07/17/24 08:08 07/17/24 09:22 Temperature Pulse Rate 86 Pulse Rate [Left R adial] Respiratory Rate Blood Pressure 149/67 Blood Pressure [Le ft Arm] Pulse Oximetry Oxygen Delivery Me thod DS: Data Data Completed and Pending Labs on day of discharge: Labs from last 24 hours 07/17/24 07/14/24 04:15 09:50 WBC 13.9 H RBC 3.2 L Hgb 8.8 L Hct 27.0 L MCV 84.4 MCH 27.6 MCHC 32.7 L RDW 16.5 H Plt Count 242 MPV 7.6 Gran % 92.3 H Lymph % (Auto) 3.5 L Drew % (Auto) 3.8 Eos % (Auto) 0.0 L Baso % (Auto) 0.4 Lymph # (Auto) 0.5 L Drew # (Auto) 0.5 L Eos # (Auto) 0.0 Baso # (Auto) 0.1 Absolute Gran (auto) 12.8 H Sodium 141 Potassium 4.3 Chloride 108.0 H Carbon Dioxide 20 L Anion Gap 13.0 BUN 84 H* Creatinine 2.4 H Estimated GFR 21.5 Glucose 204 H Calcium 8.9 Phosphorus 3.8 Magnesium 2.0 Total Bilirubin 0.26 AST 19 ALT 29 L Alkaline Phosphatase 78 B-Natriuretic Peptide 786.0 H Total Protein 7.2 Albumin 2.6 L Blood Type A Positive Antibody Screen Negative Crossmatch ([facility]) See Detail Discharge Plan Discharge Disposition: Home, Self-Care Condition: Stable Discharge Medications: New doxycycline hyclate 100 mg capsule 100 mg PO BID 5 Days Qty: 10 0RF Continued atenolol 25 mg tablet 12.5 mg PO BID Patient Comments: TAKE 1/2 TABLET BY MOUTH TWICE DAILY pioglitazone 45 mg tablet 45 mg PO DAILY Patient Comments: TAKE ONE TABLET BY MOUTH DAILY amlodipine 5 mg tablet 5 mg PO DAILY Patient Comments: TAKE ONE TABLET BY MOUTH DAILY lovastatin 10 mg tablet 10 mg PO DAILY Patient Comments: TAKE ONE TABLET BY MOUTH DAILY WITH evening meal bumetanide 0.5 mg tablet 0.5 mg PO DAILY PRN (Reason: edema) Patient Comments: TAKE ONE TABLET BY MOUTH DAILY FOR 3 DAYS THEN DAILY NEEDED thereafter glimepiride 4 mg tablet 8 mg PO DAILY Patient Comments: TAKE TWO TABLETS BY MOUTH WITH BREAKFAST OR first main meal of THE DAY insulin lispro 100 unit/mL insulin pen 5 unit SUBCUT QAM Patient Comments: INJECT 5-10 UNITS SUBCUTANEOUSLY q am insulin glargine U-300 conc [Toujeo SoloStar U-300 Insulin] 300 unit/mL (1.5 mL) insulin pen 40 unit SUBCUT BEDTIME PRN (Reason: elevated blood sugar) Patient Comments: PATIENT ONLY TAKES IF SHE EATS SOMETHING SWEET AT NIGHT. Gvoke HypoPen 2-Pack 1 mg/0.2 mL auto-injector 1 mg SUBCUT DIRECTED PRN (Reason: hypoglycemia) Lokelma 5 gram powder in packet 5 g PO DAILY Qty: 30 0RF Rx Instructions: repeat BMP phos and mag on Friday as an outpatient Discharge Orders: Discharge Order (Routine); Ordered 07/17/24 Ordered By: Romeo Leroy Activity: ambulate only with your walker Diet: advance to your usual diet Interventions: MED/SURG & ICU Observation Charge Sheet Last Done: 07/17/24 05:49 Patient Instructions: Acute Kidney Injury (GEN), Pneumonia (GEN), Diabetes and Nutrition (GEN) Forms: Portal/Health Info Access Inst Follow-Ups: Kenya Vargas [Primary Care Provider] - 07/19/24 10:15 am Devyn Lester MD [Physician] - 08/27/24 12:45 pm
== END 2024-07-17 11:46 | disposition home or self-care (01) ==
LOC: ED 12:29 → MS 12:29
PROVIDERS: ADMIT Family Medicine; ATTEND Family Medicine
DX: R06.02 Shortness of breath; N17.8 Other acute kidney failure; E11.65 Type 2 diabetes mellitus with hyperglycemia; Y92.89 Other specified places as the place of occurrence of the external cause; J18.9 Pneumonia, unspecified organism; D50.8 Other iron deficiency anemias; R53.1 Weakness; R05.9 Cough, unspecified; Z79.4 Long term (current) use of insulin; S51.811A Laceration without foreign body of right forearm, initial encounter; E88.09 Other disorders of plasma-protein metabolism, not elsewhere classified; E78.49 Other hyperlipidemia; I87.2 Venous insufficiency (chronic) (peripheral); N18.4 Chronic kidney disease, stage 4 (severe); E11.22 Type 2 diabetes mellitus with diabetic chronic kidney disease; I12.9 Hypertensive chronic kidney disease with stage 1 through stage 4 chronic kidney disease, or unspecified chronic kidney disease; I89.0 Lymphedema, not elsewhere classified; R22.43 Localized swelling, mass and lump, lower limb, bilateral